=== PATIENT | male | born 1960 | race Caucasian/White ===

== ENCOUNTER 2018-10-23 15:00 | Emergency (ER) | payer OTHER ==
[2018-10-23] MEDS ORDERED: ONDANSETRON PF 4 MG/2 ML VIAL. IV ONE (15:15)
[2018-10-23] MEDS ORDERED: HYDROmorphone PF 1 MG/ML DISP.SYRIN IV ONE ×3 (15:15→16:15)
--- NOTE | 2018-10-23 16:00 | PHYS DOC ---
Adult General Chief Complaint Chief Complaint: LOWEREXTREMITY INJURY [facility] HPI Patient is a 58 year old male who presents with complaining of injury to right lower extremity. Patient states he had an accidental fall on ice and landed on his right lower extremity without other injuries or loss of consciousness. Patient complaining of severe pain in lower right leg without neurovascular deficit and other injuries. Patient rated his pain 10 over 10. Review of Systems Review of Systems Constitutional: Denies fever or chills [] Eyes: Denies change in visual acuity, redness, or eye pain [] HENT: Denies nasal congestion or sore throat [] Respiratory: Denies cough or shortness of breath [] Cardiovascular: No additional information not addressed in HPI [] GI: Denies abdominal pain, nausea, vomiting, bloody stools or diarrhea [] : Denies dysuria or hematuria [] Musculoskeletal: Denies back pain, reports joint pain [] Integument: Denies rash or skin lesions [] Neurologic: Denies headache, focal weakness or sensory changes [] Endocrine: Denies polyuria or polydipsia [] All other systems were reviewed and found to be within normal limits, except as documented in this note. Current Medications Current Medications Current Medications Medications (Trade) Dose Ordered Sig/Chauncey Start Time Stop Time Status Last Admin Dose Admin Hydromorphone HCl (Dilaudid) 1 mg 1X ONCE 10/23/18 15:45 10/23/18 15:46 UNV Ondansetron HCl (Zofran) 4 mg 1X ONCE 10/23/18 15:15 10/23/18 15:20 DC 10/23/18 15:14 4 MG Allergies Allergies Allergies Coded Allergies Type Severity Reaction Last Updated Verified No Known Drug Allergies 10/23/18 No Physical Exam Physical Exam Constitutional: Well developed, well nourished, moderate distress, non-toxic appearance. [] HENT: Normocephalic, atraumatic Eyes: PERRLA, EOMI, conjunctiva normal, no discharge. [] Neck: Normal range of motion, no tenderness, supple, no stridor. [] Cardiovascular:Heart rate regular rhythm, no murmur [] Lungs & Thorax: Bilateral breath sounds clear to auscultation [] Skin: Warm, dry, no erythema, no rash. [] Back: No tenderness, no CVA tenderness. [] Extremities: Right lower extremity with deformity and tenderness in distal of late with limited range of motion, no neurovascular deficit, mild edema. Neurologic: Alert and oriented X 3, normal motor function, normal sensory function, no focal deficits noted. [] Psychologic: Affect and shortness, judgement normal, mood normal. [] EKG EKG [] Radiology/Procedures Radiology/Procedures [address] [address] IMAGING REPORT Signed PATIENT: TIARRA CAMARENA ACCOUNT: [id number] : 1960 LOCATION: ER AGE: 58 SEX: M EXAM STATUS: REG ER ORD. PHYSICIAN: LIONEL FERMIN MD REASON: fall PROCEDURE: ANKLE RIGHT 3V Right tibia and fibula 2 views 10/23/2018. Reason for exam: Pain after falling on the ice. There are comminuted fractures of both the tibia and fibula. The fibular fracture involves the proximal and mid portions and the tibial fracture is seen distally. The distal fibular fragment is slightly displaced anteriorly. There is about 1 cm offset. The tibial fracture has mild override and roughly 6 mm offset. There is no clear-cut extension to the joint surfaces. No other fracture or dislocation is seen. IMPRESSION: Tibia and fibula fractures. Right ankle 3 views: Comminuted fracture the distal tibia is again seen. There is no clear-cut extension to the tibiotalar joint. No joint narrowing is seen. There is probably a small effusion. IMPRESSION: Distal tibia fracture without clear-cut joint involvement, although fracture lines do extend fairly distally. Electronically signed by: Adrianna Fishman Jr., MD (10/23/2018 3:58 PM) [facility] DICTATED AND SIGNED BY: ADRIANNA FISHMAN Jr, MD DATE: 10/23/18 3400 CC: IMELDA GOMEZ DO; LIONEL FERMIN MD ~ Course & Med Decision Making Course & Med Decision Making Pertinent Imaging studies reviewed. (See chart for details) Evaluation of patient in ER showed 58-year-old male patient with a fall and injury to right lower extremity. Patient had deformity Or edema and limited range of motion of right lower extremity. X-ray showed comminuted fracture of distal tibia and nondisplacement fracture of proximal fibula. Patient treated with several stools of Dilaudid and long leg splint was applied. Dr. Jamil cross consulted at 1544 and agreed with transfer patient to [place]. Dr. Mcnally accepted transfer to [facility] at 1552. Dragon Disclaimer Dragon Disclaimer This electronic medical record was generated, in whole or in part, using a voice recognition dictation system. Departure Departure: Impression: Primary Impression: Closed fracture of right distal tibia Additional Impressions: Closed fracture of proximal end of right fibula Fall due to ice or snow Elevated blood sugar Disposition: 02 XFER T-[facility] (at 1553) Admitting Physician: Nathalia Mcnally (accepted transfer to [facility] at 1552) Condition: IMPROVED Referrals: IMELDA GOMEZ DO (PCP) Problem Qualifiers LIONEL FERMIN MD Oct 23, 2018 16:00
[2018-10-23 17:05] VITALS: BP 164/76
[2018-10-23 17:15] LABS: BASO # 0.1 x10^3/uL (0.0-0.2); BASO % 1 % (0-3); EOS # 0.1 x10^3/uL (0.0-0.7); EOS % 1 % (0-3); HEMATOCRIT 43.7 % (39.0-53.0); HEMOGLOBIN 14.9 g/dL (13.0-17.5); LYMPH # 1.9 x10^3/uL (1.0-4.8); LYMPH % 17 % (24-48); MEAN CORPUSCULAR HEMOGLOBIN 30 pg (25-35); MEAN CORPUSCULAR HGB CONC 34 g/dL (31-37); MEAN CORPUSCULAR VOLUME 87 fL (79-100); MONO # 0.6 x10^3/uL (0.0-1.1); MONO % 6 % (0-9); NEUT # 8.4 x10^3uL (1.8-7.7); NEUT % 76 % (31-73); PLATELET COUNT 263 x10^3/uL (140-400); RED BLOOD COUNT 5.04 x10^6/uL (4.30-5.70); RED CELL DISTRIBUTION WIDTH 13.2 % (11.5-14.5); WHITE BLOOD COUNT 11.1 x10^3/uL (4.0-11.0)
[2018-10-23 17:30] LABS: ALBUMIN/GLOBULIN RATIO 1.1 (1.0-1.7); CALCIUM 8.9 mg/dL (8.5-10.1); CREATININE 0.9 mg/dL (0.7-1.3); GFR 87.3; TOTAL BILIRUBIN 0.4 mg/dL (0.2-1.0); TOTAL PROTEIN 7.6 g/dL (6.4-8.2)
== END 2018-10-23 17:50 | disposition short-term general hospital (02) ==
LOC: ER 15:00 → EDBD 15:00 → ER 17:50
DX: S82.391A Other fracture of lower end of right tibia, initial encounter for closed fracture (principal); S82.831A Other fracture of upper and lower end of right fibula, initial encounter for closed fracture; R73.9 Hyperglycemia, unspecified; W00.0XXA Fall on same level due to ice and snow, initial encounter; Y93.89 Activity, other specified; Y92.89 Other specified places as the place of occurrence of the external cause; Y99.8 Other external cause status
CPT/HCPCS: 29505; 36415; 73590; 73610; 80053; 85025; 85610; 96374; 96375; 96376; 99285; J1170; J2405